=== PATIENT | female | born 1930 | race Caucasian/White ===

== ENCOUNTER 2016-09-28 11:51 | Emergency (ER) | payer OTHER, BC ==
--- NOTE | 2016-09-28 12:09 | DIAGNOSTIC IMAGING REPORT ---
PROCEDURE: CT HEAD WITHOUT CONTRAST INDICATION: STROKE TECHNIQUE: Noncontrast axial images with sagittal and coronal reformations. COMPARISON: None. FINDINGS: Moderate cortical atrophy and mild white matter chronic ischemic changes. Normal ventricular system. No acute CVA, hemorrhage, mass or midline shift. Calcific atherosclerosis of the vertebral and carotid arteries. Visualized mastoids and sinuses are clear. IMPRESSION: 1. No acute intracranial abnormality 2. Moderate atrophy and mild white matter chronic ischemic changes 3. Findings discussed with Dr. Dixon at 12:07 p.m.[facility] Time
--- NOTE | 2016-09-28 12:09 | DIAGNOSTIC IMAGING REPORT ---
PROCEDURE: CT HEAD WITHOUT CONTRAST INDICATION: STROKE TECHNIQUE: Noncontrast axial images with sagittal and coronal reformations. COMPARISON: None. FINDINGS: Moderate cortical atrophy and mild white matter chronic ischemic changes. Normal ventricular system. No acute CVA, hemorrhage, mass or midline shift. Calcific atherosclerosis of the vertebral and carotid arteries. Visualized mastoids and sinuses are clear. IMPRESSION: 1. No acute intracranial abnormality 2. Moderate atrophy and mild white matter chronic ischemic changes 3. Findings discussed with Dr. Dixon at 12:07 p.m.[facility] Time
--- NOTE | 2016-09-28 14:21 | DIAGNOSTIC IMAGING REPORT ---
PROCEDURE: US VENOUS - BILATERAL EXT INDICATION: SWELLING TECHNIQUE: Color Doppler duplex imaging of the deep and superficial venous system without and with compression. COMPARISON: None. FINDINGS: RIGHT LOWER EXTREMITY: Deep and superficial venous system of the right lower extremity is within normal limits. There is no evidence of deep vein thrombosis or superficial thrombophlebitis. LEFT LOWER EXTREMITY: Deep and superficial venous system of the left lower extremity is within normal limits. There is no evidence of deep vein thrombosis or superficial thrombophlebitis. There is left calf edema. IMPRESSION: 1. No evidence of a DVT in both lower extremities 2. Left calf edema.
--- NOTE | 2016-09-28 14:24 | ED NURSING NOTES ---
Clinical Report - Nurses [facility] [address] [place] [address] 09/28/2016 11:51 Patient: EVON MAJOR TRIAGE Triage time 1150. Acuity: LEVEL 2. Chief Complaint: FACIAL DROOP. 1150. ROXANNA COMA SCORE: [place] Coma Scale: 14- eyes open spontaneously (4); best verbal response- disoriented (4); best motor response- obeys commands (6). --12:08 Caitlin Mancilla R.N. 11:50 09/28/16. BP: 151/74. HR: 84. RR: 18. O2 saturation: 18%. Temp: 97.7 F. --12:08 Caitlin Mancilla R.N. Weight: 52 kg measured. Height/Length: 60 inches. BMI: 22.4. --11:57 Caitlin Mancilla R.N. Medications Acetaminophen Oral 500 mg, 3x a day as needed. Atorvastatin Calcium Oral 10 mg, daily. Cranberry Oral (Capsule 200 mg) 4 capsules daily. Ferrous Sulfate Oral (Tablet 325 (65 Fe) mg) 1 tablet, 3x a day. Levothyroxine Sodium Oral 50 mcg, daily. Mag64 Oral 1 tab daily. MetFORMIN HCl Oral (Tablet 1000 mg) 1 tablet, daily. Mirtazapine Oral 15 mg, at bedtime. Oyster Shell Calcium Oral (Tablet 500 mg) 1 tablet. Pantoprazole Sodium Oral 20 mg. Polyethylene Glycol 3350 Oral, daily. Prazosin HCl Oral 1 mg. Vitamin D Oral (Capsule 2000 unit) 1 capsule. --12:15 Caitlin Mancilla R.N. Allergies Penicillins. --12:11 Caitlin Mancilla R.N. History Arrived by EMS. Historian: patient. Unaccompanied. This started today pt in by EMS after [facility] staff noted that pt had slurred speech and left sided facial droop - but EMS that this has been resolving while they have had contact with her. No headache. SOCIAL HX: Never smoker. No alcohol use or drug use. --12:08 Caitlin Mancilla R.N. PROBLEMS: Prolapse of vaginal wall. Cervical disc degeneration. 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 Hemorrhoids. Hypercholesterolemia. Restless Legs Syndrome. Osteoporosis. Memory Loss. Degenerative Joint Disease. Diverticulosis. Anemia. Essential Hypertension. Anxiety Reaction. Insomnia. --12:01 Caitlin Mancilla R.N. Interventions ID band on patient. To treatment room. --12:08 Caitlin Mancilla R.N. PHYSICAL ASSESSMENT 1150. To room via stretcher. Patient gowned. GENERAL / NEURO / PSYCH: Awake. Alert. Appears in no acute distress. Speech normal. Mood/affect normal. Moves all extremities equally. RESPIRATORY: Respirations not labored. CVS: Capillary refill less than 2 seconds. SKIN: Skin is intact, warm and dry. --12:09 Caitlin Mancilla R.N. NURSING PROGRESS NOTES 11:50. Oxygen administered. Monitoring of patient in place. Patient gowned. Head of bed elevated. Reassurance given. Patient identifiers checked. Call light placed in reach. Side rails up. Bed placed in lowest position. Patient placed in chair. Patient ready for evaluation- chart flagged. --12:01 Caitlin Mancilla R.N. Patient transported to [place] by stretcher with tech. ([id number]). --12:02 Caitlin Mancilla R.N. 12:02. Patient returned from CT by stretcher with tech. --12:02 Caitlin Mancilla R.N. 12:04 09/28/2016 Site #1 started via IV in the left with an 18g angiocath, with aseptic technique and good blood return; one attempt. Blood drawn: rainbow set. Saline lock flushed with 10 mL saline. --12:04 Caitlin Mancilla R.N. 12:05 09/28/16. BP: 148/65. HR: 79. RR: 18. O2 saturation: 99%. Temp: deferred. Pain level now: 0/10. --12:11 Caitlin Mancilla R.N. 12:30 09/28/16. BP: 147/73. HR: 78. RR: 18. O2 saturation: 99%. Temp: deferred. Pain level now: 0/10. Additional comments: Pt resting quietly, states she wishes she could go home. denies c/o . --12:37 Caitlin Mancilla R.N. 12:45. ( Daughter at bedside talking with pt . Pt in no distress, recognizes daughter). --12:59 Caitlin Mancilla R.N. 13:00 09/28/16. BP: 145/78. HR: 76. RR: 18. O2 saturation: 99%. Temp: deferred. Pain level now: 0/10. --13:23 Caitlin Mancilla R.N. 13:07. ( Pt given lunch tray, daughter helping her with lunch (cutting up meat etc)). --13:23 Caitlin Mancilla R.N. 13:25 09/28/16. ( ERMD in to talk with pt and daughter, ordering a US due to leg swelling). --13:25 Caitlin Mancilla R.N. 13:35. ( Up to BSC with 1 staff assist. UA obtained and sent to lab). --14:01 Caitlin Mancilla R.N. 13:42. ( US in room to do exam). --14:01 Caitlin Mancilla R.N. 14:10 09/28/16. BP: 124/64. HR: 70. RR: 16. O2 saturation: 98%. Temp: deferred. Pain level now: 0/10. Additional comments: eatting ice cream, waiting for US results . --14:16 Caitlin Mancilla R.N. 14:35 09/28/2016 Site #1 removed upon discharge. Pressure dressing applied. --15:35 Caitlin Mancilla R.N. 14:30 pt assisted in getting dressed by staff and daughter. --15:35 Caitlin Mancilla R.N. DISPOSITION / DISCHARGE 14:45. Condition at departure: improved and stable. No learning barriers present. Discharge instructions provided and reviewed with the patient. Reviewed medication(s) (talk with your dr about med concerns discussed). Patient verbalized understanding. Written instructions provided in Iranian. The patient was discharged home and accompanied by family. She left the Emergency Department in a wheelchair and via private vehicle. Family member driving (daughter). ROXANNA COMA SCORE: [place] Coma Scale: 14- eyes open spontaneously (4); best verbal response- disoriented (4); best motor response- obeys commands (6). --15:34 Caitlin Mancilla R.N. 14:45 09/28/16. BP: 118/55. HR: 71. RR: 20. O2 saturation: 99%. Temp: deferred. Pain level now: 0/10. --15:34 Caitlin Mancilla R.N. Locked/Released at 09/28/2016 16:50 by Caitlin Mancilla R.N.
--- NOTE | 2016-09-28 14:24 | ED CLINICAL REPORT ---
Clinical Report - Physicians/Mid Levels [facility] [address] [place] [place] [address] 09/28/2016 11:51 Patient: EVON MAJOR Time Seen: 11:54; initial patient contact. Arrived- By ambulance. Historian- patient and EMS personnel. HISTORY OF PRESENT ILLNESS Chief Complaint: FACIAL DROOP. The patient has had new onset of weakness of the left face (mild). No numbness, tingling, visual disturbance, impaired swallowing or recent fall. She has had difficulty with speech. No difficulty walking. 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 At its maximum deficit described as mild. When seen in the E.D., it was gone. No dizziness, altered mental status, seizure or blackouts. Usually is alert and oriented X3 and has normal mobility. Similar symptoms previously: None. Recent medical care: Not recently seen/assessed. REVIEW OF SYSTEMS No headache, head injury, chest pain or difficulty breathing. She has had moderate pedal edema involving the right and left leg. All systems otherwise negative, except as recorded above. PAST HISTORY ( Prolapse of vaginal wall. Cervical disc degeneration. 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 Hemorrhoids. Hypercholesterolemia. Restless Legs Syndrome. Osteoporosis. Memory Loss. Degenerative Joint Disease. Diverticulosis. Anemia. Essential Hypertension. Anxiety Reaction. Insomnia.). Medications: Acetaminophen Oral 500 mg, 3x a day as needed. Atorvastatin Calcium Oral 10 mg, daily. Cranberry Oral (Capsule 200 mg) 4 capsules daily. Ferrous Sulfate Oral (Tablet 325 (65 Fe) mg) 1 tablet, 3x a day. Levothyroxine Sodium Oral 50 mcg, daily. Mag64 Oral 1 tab daily. MetFORMIN HCl Oral (Tablet 1000 mg) 1 tablet, daily. Mirtazapine Oral 15 mg, at bedtime. Oyster Shell Calcium Oral (Tablet 500 mg) 1 tablet. Pantoprazole Sodium Oral 20 mg. Polyethylene Glycol 3350 Oral, daily. Prazosin HCl Oral 1 mg. Vitamin D Oral (Capsule 2000 unit) 1 capsule. Allergies: Penicillins. SOCIAL HISTORY Never smoker. No alcohol use or drug use. ADDITIONAL NOTES The nursing notes have been reviewed. PHYSICAL EXAM Vital Signs: 09/28/2016 11:50 BP: 151/74. HR: 84. RR: 18. O2 saturation: 18%. Temp: 97.7 F. Have been reviewed and do not appear to be correct. Hypertensive. Heart rate normal. Respiratory rate normal. Oxygen saturation normal. Appearance: Alert. No acute distress. Head: Head atraumatic. Eyes: Pupils equal, round and reactive to light. ENT: Normal ENT inspection. Airway intact. Pharynx normal. Neck: Normal inspection. Neck supple. No carotid bruit. CVS: Normal heart rate and rhythm. Heart sounds normal. Respiratory: No respiratory distress. Breath sounds normal. Skin: Skin warm and dry. Normal skin color. No rash. Neuro: Alert. Oriented X 3. Mood/affect normal. Speech normal. Cranial nerves normal (as tested). No cerebellar findings. No abnormal finger-nose test. No motor deficit. No sensory deficit. Reflexes normal. LABS, X-RAYS, AND EKG CT Head: (1. No acute intracranial abnormality 2. Moderate atrophy and mild white matter chronic ischemic changes). Head CT performed without contrast. The study was independently viewed by me, interpreted by the radiologist and discussed with the radiologist. Prior studies were not available for comparison. Lower Extremity Sonography: Negative exam. No compression abnormality noted. The exam was performed by a geologic technician. The study was interpreted by the radiologist and discussed with the radiologist. Laboratory Tests: CBC w Diff: (JOYCE: 09/28/2016 12:05) ( MsgRcvd 09/28/2016 12:17) Final results Test Result Flag Units (Reference) WHITE BLOOD COUNT 7.4 K/uL (4.5-11.5) RED BLOOD COUNT 3.22 L M/uL (4.00-5.20) HEMOGLOBIN 9.3 L gm/dL (12.0-16.0) HEMATOCRIT 28.4 L % (36.0-46.0) MEAN CELL VOLUME 88 fL (80-100) MEAN CORPUSCULAR HGB 29 pg (26-34) MEAN CORPUSCULAR HGB CONC 33 g/dL (31-37) RED CELL DISTRIBUTION WIDTH 15.3 H % (11.6-14.8) PLATELET COUNT 277 K/uL (150-400) NEUTROPHIL % 68.0 % (50-75) LYMPH % 22.8 L % (25-40) MONO % 8.0 % (3-14) EOSINOPHIL % 0.8 % (0-4) BASOPHIL % 0.4 % (0-2) PT with INR: (JOYCE: 09/28/2016 12:05) ( [facility] [place] 12:24) Final results Test Result Flag Units (Reference) INR 1.0 (0.8-1.2) Low Intensity Therapy: INR 1.5-2.0 PT range 18.5-23.1Mod.Intensity Therapy: INR 2.0-3.0 PT range 23.1-31.5High Intensity Therapy: INR 2.5-3.5 PT range 27.4-35.5High Intensity Therapy 2: INR 3.0-4.0 PT range 31.5-39.3 APTT 32 SECONDS (24-34) FIBRINOGEN 266 mg/dL (193-455) D-DIMER QUANTITATIVE 0.97 H ug/mLFEU (0.27-0.52) The primary value of this quantitative assay relates toits negative predictive value (i.e. exclusion) of pulmonaryembolism/deep vein thrombosis/DIC.Elevated levels of d-dimer may also occur with:, age, cancer, inflammation, liver disease,post-op, infection, hematoma, coronary disease, peripheralarteriopathy, bleeding disorders and thrombolytic treatment.Results should be correlated with other clinical andradiological data.Testing Methodology: Latex Immunoassay CMP: (JOYCE: 09/28/2016 12:05) ( [facility] [place] 09/28/2016 12:29) Final results Test Result Flag Units (Reference) GLUCOSE 128 H mg/dL (70-110) BUN 21 H mg/dL (7-18) CREATININE 0.9 mg/dL (0.6-1.3) Estimated GFR >60 mL/min Estimated GFR- >60 mL/min Note: Persistent reduction over 3 months in eGFR<60 mL/min/1.73 m2 defines CKD. Patients with eGFR values>=60 mL/min/1.73 m2 may also have CKD if evidence ofpersistent proteinuria. Additional information may be foundat www.kidney.org. SODIUM 134 L mmol/L (136-145) POTASSIUM 3.9 mmol/L (3.5-5.1) CHLORIDE 98 mmol/L (98-107) CARBON DIOXIDE 28 mmol/L (21-32) CALCIUM 8.8 mg/dL (8.5-10.1) TOTAL PROTEIN 6.8 g/dL (6.4-8.2) ALBUMIN 3.4 g/dL (3.3-5.0) BILIRUBIN, TOTAL 0.2 mg/dL (0.0-1.0) ALKALINE PHOSPHATASE 67 U/L (46-116) AST (SGOT) 16 U/L (15-37) ALT (SGPT) 17 U/L (12-78) . PROGRESS AND PROCEDURES Course of Care: 13:35 09/28/16. Pos D dimer w/ LE edema, will US to ensure no DVT. Anemia is Cx per her daughter. Disposition: Discharged to [facility]pc in good and improved condition. Condition: good. CLINICAL IMPRESSION Acute weakness of the left face. 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 Bilateral pedal edema secondary to unknown cause (Possibly medication). INSTRUCTIONS (The Prazosin may be the cause of your leg swelling, speak to your doctor about this. Also, your Atorvastatin should be discussed as the potential benefits at your ago are likely outweighed by potential side effects.). Your Current Medications: STOP TAKING THE FOLLOWING MEDICATIONS: Atorvastatin Calcium Oral : 10 mg daily. CONTINUE TAKING THE FOLLOWING MEDICATIONS: Acetaminophen Oral : 500 mg 3x a day, prn. Cranberry Oral : Capsule 200 mg, 4 capsules daily. Ferrous Sulfate Oral : Tablet 325 (65 Fe) mg, 1 tablet 3x a day. Levothyroxine Sodium Oral : 50 mcg daily. Mag64 Oral : 1 tab daily. MetFORMIN HCl Oral : Tablet 1000 mg, 1 tablet daily. Mirtazapine Oral : 15 mg at bedtime. Oyster Shell Calcium Oral : Tablet 500 mg, 1 tablet. Pantoprazole Sodium Oral : 20 mg. Polyethylene Glycol 3350 Oral : daily. Vitamin D Oral : Capsule 2000 unit, 1 capsule. CONTINUE TAKING THE FOLLOWING MEDICATIONS UNTIL YOU CHECK WITH YOUR PHYSICIAN: Prazosin HCl Oral : 1 mg. Follow-up: Follow up with your doctor in about three days. Call for an appointment. Screening today revealed the patient's blood pressure to be in the pre-hypertensive range. The patient should follow up with a primary care provider for blood pressure management. (Electronically signed by Vazquez Dixon Dr. 09/28/2016 14:32)
--- NOTE | 2016-09-28 14:24 | ED CLINICAL REPORT ---
Clinical Report - Physicians/Mid Levels [facility] [address] [place] [address] 09/28/2016 11:51 Patient: EVON MAJOR Time Seen: 11:54; initial patient contact. Arrived- By ambulance. Historian- patient and EMS personnel. HISTORY OF PRESENT ILLNESS Chief Complaint: FACIAL DROOP. The patient has had new onset of weakness of the left face (mild). No numbness, tingling, visual disturbance, impaired swallowing or recent fall. She has had difficulty with speech. No difficulty walking. This started about 15 minutes APPLICATIONS INTERN, patient was last known well (this AM) and is now gone (Resolved when EMS arrived). At its maximum deficit described as mild. When seen in the E.D., it was gone. No dizziness, altered mental status, seizure or blackouts. Usually is alert and oriented X3 and has normal mobility. Similar symptoms previously: None. Recent medical care: Not recently seen/assessed. REVIEW OF SYSTEMS No headache, head injury, chest pain or difficulty breathing. She has had moderate pedal edema involving the right and left leg. All systems otherwise negative, except as recorded above. PAST HISTORY ( Prolapse of vaginal wall. Cervical disc degeneration. 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 Hemorrhoids. Hypercholesterolemia. Restless Legs Syndrome. Osteoporosis. Memory Loss. Degenerative Joint Disease. Diverticulosis. Anemia. Essential Hypertension. Anxiety Reaction. Insomnia.). Medications: Acetaminophen Oral 500 mg, 3x a day as needed. Atorvastatin Calcium Oral 10 mg, daily. Cranberry Oral (Capsule 200 mg) 4 capsules daily. Ferrous Sulfate Oral (Tablet 325 (65 Fe) mg) 1 tablet, 3x a day. Levothyroxine Sodium Oral 50 mcg, daily. Mag64 Oral 1 tab daily. MetFORMIN HCl Oral (Tablet 1000 mg) 1 tablet, daily. Mirtazapine Oral 15 mg, at bedtime. Oyster Shell Calcium Oral (Tablet 500 mg) 1 tablet. Pantoprazole Sodium Oral 20 mg. Polyethylene Glycol 3350 Oral, daily. Prazosin HCl Oral 1 mg. Vitamin D Oral (Capsule 2000 unit) 1 capsule. Allergies: Penicillins. SOCIAL HISTORY Never smoker. No alcohol use or drug use. ADDITIONAL NOTES The nursing notes have been reviewed. PHYSICAL EXAM Vital Signs: 09/28/2016 11:50 BP: 151/74. HR: 84. RR: 18. O2 saturation: 18%. Temp: 97.7 F. Have been reviewed and do not appear to be correct. Hypertensive. Heart rate normal. Respiratory rate normal. Oxygen saturation normal. Appearance: Alert. No acute distress. Head: Head atraumatic. Eyes: Pupils equal, round and reactive to light. ENT: Normal ENT inspection. Airway intact. Pharynx normal. Neck: Normal inspection. Neck supple. No carotid bruit. CVS: Normal heart rate and rhythm. Heart sounds normal. Respiratory: No respiratory distress. Breath sounds normal. Skin: Skin warm and dry. Normal skin color. No rash. Neuro: Alert. Oriented X 3. Mood/affect normal. Speech normal. Cranial nerves normal (as tested). No cerebellar findings. No abnormal finger-nose test. No motor deficit. No sensory deficit. Reflexes normal. LABS, X-RAYS, AND EKG CT Head: (1. No acute intracranial abnormality 2. Moderate atrophy and mild white matter chronic ischemic changes). Head CT performed without contrast. The study was independently viewed by me, interpreted by the radiologist and discussed with the radiologist. Prior studies were not available for comparison. Lower Extremity Sonography: Negative exam. No compression abnormality noted. The exam was performed by a vending machine technician. The study was interpreted by the radiologist and discussed with the radiologist. Laboratory Tests: CBC w Diff: (JOYCE: 09/28/2016 12:05) ( MsgRcvd 09/28/2016 12:17) Final results Test Result Flag Units (Reference) WHITE BLOOD COUNT 7.4 K/uL (4.5-11.5) RED BLOOD COUNT 3.22 L M/uL (4.00-5.20) HEMOGLOBIN 9.3 L gm/dL (12.0-16.0) HEMATOCRIT 28.4 L % (36.0-46.0) MEAN CELL VOLUME 88 fL (80-100) MEAN CORPUSCULAR HGB 29 pg (26-34) MEAN CORPUSCULAR HGB CONC 33 g/dL (31-37) RED CELL DISTRIBUTION WIDTH 15.3 H % (11.6-14.8) PLATELET COUNT 277 K/uL (150-400) NEUTROPHIL % 68.0 % (50-75) LYMPH % 22.8 L % (25-40) MONO % 8.0 % (3-14) EOSINOPHIL % 0.8 % (0-4) BASOPHIL % 0.4 % (0-2) PT with INR: (JOYCE: 09/28/2016 12:05) ( [facility] [place] 09/28/[place] 12:24) Final results Test Result Flag Units (Reference) INR 1.0 (0.8-1.2) Low Intensity Therapy: INR 1.5-2.0 PT range 18.5-23.1Mod.Intensity Therapy: INR 2.0-3.0 PT range 23.1-31.5High Intensity Therapy: INR 2.5-3.5 PT range 27.4-35.5High Intensity Therapy 2: INR 3.0-4.0 PT range 31.5-39.3 APTT 32 SECONDS (24-34) FIBRINOGEN 266 mg/dL (193-455) D-DIMER QUANTITATIVE 0.97 H ug/mLFEU (0.27-0.52) The primary value of this quantitative assay relates toits negative predictive value (i.e. exclusion) of pulmonaryembolism/deep vein thrombosis/DIC.Elevated levels of d-dimer may also occur with:, age, cancer, inflammation, liver disease,post-op, infection, hematoma, coronary disease, peripheralarteriopathy, bleeding disorders and thrombolytic treatment.Results should be correlated with other clinical andradiological data.Testing Methodology: Latex Immunoassay CMP: (JOYCE: 09/28/2016 12:05) ( [facility] [place] 09/28/2016 12:29) Final results Test Result Flag Units (Reference) GLUCOSE 128 H mg/dL (70-110) BUN 21 H mg/dL (7-18) CREATININE 0.9 mg/dL (0.6-1.3) Estimated GFR >60 mL/min Estimated GFR- >60 mL/min Note: Persistent reduction over 3 months in eGFR<60 mL/min/1.73 m2 defines CKD. Patients with eGFR values>=60 mL/min/1.73 m2 may also have CKD if evidence ofpersistent proteinuria. Additional information may be foundat www.kidney.org. SODIUM 134 L mmol/L (136-145) POTASSIUM 3.9 mmol/L (3.5-5.1) CHLORIDE 98 mmol/L (98-107) CARBON DIOXIDE 28 mmol/L (21-32) CALCIUM 8.8 mg/dL (8.5-10.1) TOTAL PROTEIN 6.8 g/dL (6.4-8.2) ALBUMIN 3.4 g/dL (3.3-5.0) BILIRUBIN, TOTAL 0.2 mg/dL (0.0-1.0) ALKALINE PHOSPHATASE 67 U/L (46-116) AST (SGOT) 16 U/L (15-37) ALT (SGPT) 17 U/L (12-78) . PROGRESS AND PROCEDURES Course of Care: 13:35 09/28/16. Pos D dimer w/ LE edema, will US to ensure no DVT. Anemia is Cx per her daughter. Disposition: Discharged to snf in good and improved condition. Condition: good. CLINICAL IMPRESSION Acute weakness of the left face. (resolved APPLICATIONS INTERN). Bilateral pedal edema secondary to unknown cause (Possibly medication). INSTRUCTIONS (The Prazosin may be the cause of your leg swelling, speak to your doctor about this. Also, your Atorvastatin should be discussed as the potential benefits at your ago are likely outweighed by potential side effects.). Your Current Medications: STOP TAKING THE FOLLOWING MEDICATIONS: Atorvastatin Calcium Oral : 10 mg daily. CONTINUE TAKING THE FOLLOWING MEDICATIONS: Acetaminophen Oral : 500 mg 3x a day, prn. Cranberry Oral : Capsule 200 mg, 4 capsules daily. Ferrous Sulfate Oral : Tablet 325 (65 Fe) mg, 1 tablet 3x a day. Levothyroxine Sodium Oral : 50 mcg daily. Mag64 Oral : 1 tab daily. MetFORMIN HCl Oral : Tablet 1000 mg, 1 tablet daily. Mirtazapine Oral : 15 mg at bedtime. Oyster Shell Calcium Oral : Tablet 500 mg, 1 tablet. Pantoprazole Sodium Oral : 20 mg. Polyethylene Glycol 3350 Oral : daily. Vitamin D Oral : Capsule 2000 unit, 1 capsule. CONTINUE TAKING THE FOLLOWING MEDICATIONS UNTIL YOU CHECK WITH YOUR PHYSICIAN: Prazosin HCl Oral : 1 mg. Follow-up: Follow up with your doctor in about three days. Call for an appointment. Screening today revealed the patient's blood pressure to be in the pre-hypertensive range. The patient should follow up with a primary care provider for blood pressure management. (Electronically signed by Vazquez Dixon Dr. 09/28/2016 14:32)
--- NOTE | 2016-09-28 14:25 | ED ORDER SUMMARY ---
..... Patient: EVON MAJOR OrderSheet [facility]ly [facility] VisitID: [id number] [place] [address] 86y, F Registration Date/Time: 09/28/2016 ORDER SHEET Weight: 52 kg (measured) Allergies: Penicillins GENERAL ORDERS: CT Head wo Cont Urgent (11:55 09/28/2016 Amber Joy) (Ack 11:56 KHoerner) (12:12 KHoerner) Stroke Panel Stat (11:55 09/28/2016 Amber Joy) (Ack 11:56 Ben) (12:20 DDean R.N.) US Venous Bilat (Pos D dimer) Urgent (13:25 09/28/2016 Amber Joy) (Ack 13:27 KHoerner) UA-Culture if indicated Urgent (13:34 09/28/2016 Amber Joy) (Ack 13:34 RENOoerner) (13:46 KHoerner) MEDICATION ORDERS: IV FLUIDS: IV Saline Lock (11:55 09/28/2016 Amber Joy) (12:20 DDean R.N.) ORDER SHEET NOTES: [Electronically signed by Vazquez Dixon Dr. (14:32 09/28/2016)] [Electronically signed by Caitlin Mancilla R.N. (16:50 09/28/2016)] [Electronically locked/signed by Caitlin Mancilla R.N. (16:50 09/28/2016)]
--- NOTE | 2016-09-28 14:25 | ED ORDER SUMMARY ---
..... Patient: EVON MAJOR OrderSheet [facility] VisitID: [id number] [place] [address] 86y, F Registration Date/Time: 09/28/2016 ORDER SHEET Weight: 52 kg (measured) Allergies: Penicillins GENERAL ORDERS: CT Head wo Cont Urgent (11:55 09/28/2016 Amber Joy) (Ack 11:56 KHoerner) (12:12 KHoerner) Stroke Panel Stat (11:55 09/28/2016 Amber Joy) (Ack 11:56 Ben) (12:20 DDean R.N.) US Venous Bilat (Pos D dimer) Urgent (13:25 09/28/2016 Amber Joy) (Ack 13:27 KHoerner) UA-Culture if indicated Urgent (13:34 09/28/2016 Amber Joy) (Ack 13:34 RENOoerner) (13:46 KHoerner) MEDICATION ORDERS: IV FLUIDS: IV Saline Lock (11:55 09/28/2016 Amber Joy) (12:20 DDean R.N.) ORDER SHEET NOTES: [Electronically signed by Vazquez Dixon Dr. (14:32 09/28/2016)] [Electronically signed by Caitlin Mancilla R.N. (16:50 09/28/2016)] [Electronically locked/signed by Caitlin Mancilla R.N. (16:50 09/28/2016)]
--- NOTE | 2016-09-28 16:50 | ED MAR SUMMARY ---
..... Medication Administration Record [facility] [address] [place], [place] [id number] Patient: EVON MAJOR Visit ID: [id number] 86y, F Weight: 52.0 kg Height/Length: 60 in BMI: 22.4 ALLERGIES: Penicillins
--- NOTE | 2016-09-28 16:50 | ED DISCHARGE INSTRUCTIONS ---
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 Bilateral pedal edema secondary to unknown cause (Possibly medication). INSTRUCTIONS (The Prazosin may be the cause of your leg swelling, speak to your doctor about this. Also, your Atorvastatin should be discussed as the potential benefits at your ago are likely outweighed by potential side effects.). Your Current Medications: STOP TAKING THE FOLLOWING MEDICATIONS: Atorvastatin Calcium Oral : 10 mg daily. CONTINUE TAKING THE FOLLOWING MEDICATIONS: Acetaminophen Oral : 500 mg 3x a day, prn. Cranberry Oral : Capsule 200 mg, 4 capsules daily. Ferrous Sulfate Oral : Tablet 325 (65 Fe) mg, 1 tablet 3x a day. Levothyroxine Sodium Oral : 50 mcg daily. Mag64 Oral : 1 tab daily. MetFORMIN HCl Oral : Tablet 1000 mg, 1 tablet daily. Mirtazapine Oral : 15 mg at bedtime. Oyster Shell Calcium Oral : Tablet 500 mg, 1 tablet. Pantoprazole Sodium Oral : 20 mg. Polyethylene Glycol 3350 Oral : daily. Vitamin D Oral : Capsule 2000 unit, 1 capsule. CONTINUE TAKING THE FOLLOWING MEDICATIONS UNTIL YOU CHECK WITH YOUR PHYSICIAN: Prazosin HCl Oral : 1 mg. Follow-up: Follow up with your doctor in about three days. Call for an appointment. Screening today revealed the patient's blood pressure to be in the pre-hypertensive range. The patient should follow up with a primary care provider for blood pressure management. ADDITIONAL INFORMATION Leg Swelling [Bilateral] Swelling of the feet, ankles and legs is called "Edema." It is due to excess fluid collecting in the tissues. Because of gravity, excess fluid in the body settles in the lowest part. This is why the legs and feet are most affected. Some of the causes for edema include: Disease of the heart (congestive heart failure or "CHF") Prolonged standing or sitting (with the legs in the down position) Infection of the feet or legs Venous Insufficiency (congestion of blood in the veins of the legs) Varicose veins (dilated veins of the lower leg) Garters, or clothing that constricts your legs. (These will cause venous congestion by restricting blood flow.) Some medicines (hormones such as control pills; some blood pressure medicines, such as calcium channel blockers; steroids; some antidepressants such as MAO inhibitors and tricyclics.) Menstrual periods with fluid retention Renal insufficiency (a form of kidney disease) Liver failure (Some swelling is normal, but a sudden increase in leg swelling or weight gain can be a sign of a dangerous complication of ). Medical treatment will depend on the cause of your swelling. Diuretics (water pills) may be prescribed to remove excess fluid. Home Care: Do not wear garments that constrict your legs (such as garters). Elevate your legs while lying or sitting. If infection, injury or recent surgery is the cause for your swelling, stay off your legs as much as possible until symptoms improve. If your doctor says that your leg swelling is caused by venous insufficiency or varicose veins, do not sit or wet machine operator one place for long periods of time. Take breaks and walk about every few hours. Brisk walking is a good exercise and helps circulate the congested blood from your leg. Talk to your doctor about the use of support stockings to prevent daytime leg swelling. If your doctor says that heart disease is the cause of your leg swelling, follow a low-salt diet to prevent excess fluid retention. Follow Up with your doctor or as advised by our staff. Get Prompt Medical Attention if any of the following occur: New or worsening shortness of breath or chest pain Increasing swelling in both legs or ankles Swelling of the abdomen Redness, warmth or swelling in one leg Fever of 100.4F (38C) or higher, or as directed by your healthcare provider Yellow color to the skin or eyes Rapid, unexplained weight gain Weakness [Uncertain Cause] Based on your exam today, the exact cause of your weakness is not certain. However, your weakness does not seem to be a sign of a serious illness at this time. Sometimes the signs of a serious illness take more time to appear. Therefore, please watch for the warning signs listed below. Home Care: 1) Rest at home today. Do not over-exert yourself. 2) Take your medicine as prescribed. 3) For the next few days, drink extra fluids (unless your doctor wants you to restrict fluids for other reasons). Do not skip meals. Follow Up with your doctor or as advised if you are not starting to feel better within TWO days. Get Prompt Medical Attention if any of the following occur: Worsening of your symptoms Chest, arm, neck, jaw or upper back pain Dizziness or fainting Trouble breathing Unable to eat or drink normal amounts Nausea, frequent vomiting, frequent diarrhea Abdominal pain Numbness or weakness of the face, one arm or one leg Slurred speech, confusion, trouble speaking, walking or seeing Blood in vomit or stool (black or red color) Fever of 100.4 F (38 C) or higher, or as directed by your healthcare provider You have been given the following additional information: Peripheral Edema, Bilateral Weakness, Unk Cause (Electronically signed by Vazquez Dixon Dr. 09/28/2016 14:32)
--- NOTE | 2016-09-28 16:50 | ED MAR SUMMARY ---
..... Medication Administration Record [facility] [address] [place], [place] [id number] Patient: EVON MAJOR Visit ID: [id number] 86y, F Weight: 52.0 kg Height/Length: 60 in BMI: 22.4 ALLERGIES: Penicillins
--- NOTE | 2016-09-28 16:51 | ED MED RECONCILIATION SUMMARY ---
Patient: EVON MAJOR Medication Reconciliation Report [facility] VisitID: [id number] [place] [address] 86y, F Registration Date/Time: 09/28/2016 Weight: 52 kg Height/Length: 60 in. BMI: 22.4 ALLERGIES: Penicillins The patient's Home Medications are listed below: STOP TAKING THE FOLLOWING MEDICATIONS: Atorvastatin Calcium Oral 10 mg, daily CONTINUE TAKING THE FOLLOWING MEDICATIONS: Acetaminophen Oral 500 mg, 3x a day Cranberry Oral (200 mg) 4 capsules daily Ferrous Sulfate Oral (325 (65 Fe) mg) 1 tablet, 3x a day Levothyroxine Sodium Oral 50 mcg, daily Mag64 Oral 1 tab daily MetFORMIN HCl Oral (1000 mg) 1 tablet, daily Mirtazapine Oral 15 mg, at bedtime Oyster Shell Calcium Oral (500 mg) 1 tablet Pantoprazole Sodium Oral 20 mg Polyethylene Glycol 3350 Oral, daily Vitamin D Oral (2000 unit) 1 capsule CONTINUE TAKING THE FOLLOWING MEDICATIONS UNTIL YOU CHECK WITH YOUR PHYSICIAN: Prazosin HCl Oral 1 mg The source(s) of the original Home Medication information: Not obtained. The following Medications were given to the patient in the Emergency Department: None. The following Medications were prescribed to the patient: None.
--- NOTE | 2016-09-28 16:51 | ED MED RECONCILIATION SUMMARY ---
Patient: EVON MAJOR Medication Reconciliation Report [facility] VisitID: [id number] [place] [address] 86y, F Registration Date/Time: 09/28/2016 Weight: 52 kg Height/Length: 60 in. BMI: 22.4 ALLERGIES: Penicillins The patient's Home Medications are listed below: STOP TAKING THE FOLLOWING MEDICATIONS: Atorvastatin Calcium Oral 10 mg, daily CONTINUE TAKING THE FOLLOWING MEDICATIONS: Acetaminophen Oral 500 mg, 3x a day Cranberry Oral (200 mg) 4 capsules daily Ferrous Sulfate Oral (325 (65 Fe) mg) 1 tablet, 3x a day Levothyroxine Sodium Oral 50 mcg, daily Mag64 Oral 1 tab daily MetFORMIN HCl Oral (1000 mg) 1 tablet, daily Mirtazapine Oral 15 mg, at bedtime Oyster Shell Calcium Oral (500 mg) 1 tablet Pantoprazole Sodium Oral 20 mg Polyethylene Glycol 3350 Oral, daily Vitamin D Oral (2000 unit) 1 capsule CONTINUE TAKING THE FOLLOWING MEDICATIONS UNTIL YOU CHECK WITH YOUR PHYSICIAN: Prazosin HCl Oral 1 mg The source(s) of the original Home Medication information: Not obtained. The following Medications were given to the patient in the Emergency Department: None. The following Medications were prescribed to the patient: None.
== END 2016-09-28 14:48 | disposition home or self-care (01) ==
LOC: ED SRH 11:51
DX: R29.810 Facial weakness (principal); R60.0 Localized edema; N39.0 Urinary tract infection, site not specified; E78.00 Pure hypercholesterolemia, unspecified; I10 Essential (primary) hypertension; Z79.84 Long term (current) use of oral hypoglycemic drugs; Z79.899 Other long term (current) drug therapy; Z88.0 Allergy status to penicillin
CPT/HCPCS: 90004; 90100; 90148; 90469; 91556; 94001; 94050; 94060; 95059

== ENCOUNTER 2016-10-02 11:30 | Emergency (ER) | payer OTHER, BC ==
--- NOTE | 2016-10-02 11:50 | DIAGNOSTIC IMAGING REPORT ---
PROCEDURE: CT HEAD WITHOUT CONTRAST INDICATION: STROKE TECHNIQUE: Noncontrast axial images with sagittal and coronal reformations. COMPARISON: None. FINDINGS: Moderate cortical atrophy and mild white matter chronic ischemic changes. Normal ventricular size. No evidence of an acute CVA, hemorrhage, mass or midline shift. Extensive atherosclerosis of the vertebral and carotid arteries. Visualized mastoids and sinuses are clear. IMPRESSION: 1. No acute intracranial abnormality 2. Moderate atrophy and mild white matter chronic ischemic changes 3. Findings discussed with Dr. Hagan at 11:47 a.m.[facility] Time
--- NOTE | 2016-10-02 11:50 | DIAGNOSTIC IMAGING REPORT ---
PROCEDURE: CT HEAD WITHOUT CONTRAST INDICATION: STROKE TECHNIQUE: Noncontrast axial images with sagittal and coronal reformations. COMPARISON: None. FINDINGS: Moderate cortical atrophy and mild white matter chronic ischemic changes. Normal ventricular size. No evidence of an acute CVA, hemorrhage, mass or midline shift. Extensive atherosclerosis of the vertebral and carotid arteries. Visualized mastoids and sinuses are clear. IMPRESSION: 1. No acute intracranial abnormality 2. Moderate atrophy and mild white matter chronic ischemic changes 3. Findings discussed with Dr. Hagan at 11:47 a.m.[facility] Time
--- NOTE | 2016-10-02 12:22 | DIAGNOSTIC IMAGING REPORT ---
PROCEDURE: XR CHEST 1 VIEW INDICATION: CVA TECHNIQUE: Portable AP view 12:09 p.m. COMPARISON: None. FINDINGS: Skin fold projects over the right hemithorax. Lungs are clear. No evidence of aspiration. Mild cardiomegaly. Mediastinum and pulmonary vessels are normal. Thorax is normal. IMPRESSION: 1. No acute changes 2. Mild cardiomegaly.
--- NOTE | 2016-10-02 14:21 | ED ORDER SUMMARY ---
..... Patient: EVON MAJOR OrderSheet [facility] VisitID: [id number] [place], [place] [id number] 86y, F Registration Date/Time: 10/02/2016 ORDER SHEET Weight: 51 kg (measured) Allergies: Penicillins GENERAL ORDERS: CT Head wo Cont Urgent (11:34 10/02/2016 Jayy GODFREY) (Ack 11:51 Panfilo) (14:26 Rick R.N.) EKG - ER Stat (11:50 10/02/2016 PWeiler ER Tech1 per protocol) (11:50 PWeiler ER Tech1) Chest 1V Urgent (11:59 10/02/2016 Jayy GODFREY) (Ack 12:02 Panfilo) (14:10 LNations ER Tech1) Apprentice Stylist (Continuous) (12:00 10/02/2016 Jayy GODFREY) (Ack 12:02 Panfilo) (12:04 KPajosie-Lopez R.N.) CBC w Diff Urgent (12:00 10/02/2016 Jayy GODFREY) (Ack 12:02 Panfilo) (12:05 KPajosie-Lopez R.N.) CMP Urgent (12:00 10/02/2016 Jayy GODFREY) (Ack 12:02 Panfilo) (12:05 Mono R.N.) UA-Culture if indicated Urgent (12:00 10/02/2016 Jayy GODFREY) (Ack 12:02 Panfilo) (14:21 Rick R.N.) PT with INR Urgent (12:00 10/02/2016 Jayy GODFREY) (Ack 12:02 Panfilo) (12:05 KPaLolly R.N.) PTT Urgent (12:00 10/02/2016 Jayy GODFREY) (Ack 12:02 Panfilo) (12:05 KPaLolly R.N.) Amylase Urgent (12:00 10/02/2016 Jayy GODFREY) (Ack 12:02 Panfilo) (12:05 KPaLolly R.N.) Lipase Urgent (12:00 10/02/2016 Jayy GODFREY) (Ack 12:02 Panfilo) (12:05 KPage-Kuchan R.N.) CPK Urgent (12:00 10/02/2016 Jayy GODFREY) (Ack 12:02 Panflio) (12:05 KPage-Kuchan R.N.) Troponin-I Urgent (12:00 10/02/2016 Jayy GODFREY) (Ack 12:02 Panfilo) (12:05 KPage-Kuchan R.N.) Oxygen (2 L/min) (NC) (12:00 10/02/2016 Jayy GODFREY) (Ack 12:02 Panfilo) (12:04 KPage-Kuchan R.N.) Pulse oximeter (12:10/02/2016 Jayy GODFREY) (Ack 12:02 Panfilo) (12:04 KPage-Kuchan R.N.) EKG - ER Stat (12:10/02/2016 Jayy GODFREY) (Ack 12:02 Panfilo) (12:04 KPage-Kuchan R.N.) MEDICATION ORDERS: Aspirin PO 325 mg (Do not crush or chew, NOW) (14:16 10/02/2016 Jayy GODFREY) (Ack 14:21 Rick R.N.) (14:26 Rick R.N.) IV FLUIDS: IV Saline Lock (12:10/02/2016 Jayy GODFREY) (12:04 KPajosie-Eyadn R.N.) ORDER SHEET NOTES: [Electronically signed by Kerrie Harley R.N. (15:49 10/02/2016)] [Electronically signed by Wilmar Hagan MD (19:30 10/02/2016)] [Electronically locked/signed by Kerrie Harley R.N. (15:49 10/02/2016)]
--- NOTE | 2016-10-02 14:21 | ED ORDER SUMMARY ---
..... Patient: EVON MAJOR OrderSheet [facility] VisitID: [id number] [place], [place] [id number] 86y, F Registration Date/Time: 10/02/2016 ORDER SHEET Weight: 51 kg (measured) Allergies: Penicillins GENERAL ORDERS: CT Head wo Cont Urgent (11:34 10/02/2016 Jayy GODFREY) (Ack 11:51 Panfilo) (14:26 Rick R.N.) EKG - ER Stat (11:50 10/02/2016 PWeiler ER Tech1 per protocol) (11:50 PWeiler ER Tech1) Chest 1V Urgent (11:59 10/02/2016 Jayy GODFREY) (Ack 12:02 Panfilo) (14:10 LNations ER Tech1) Certified Retinal Angiographer (Continuous) (12:00 10/02/2016 Jayy GODFREY) (Ack 12:02 Panfilo) (12:04 KPajosie-Lopez R.N.) CBC w Diff Urgent (12:00 10/02/2016 Jayy GODFREY) (Ack 12:02 Panfilo) (12:05 KPajosie-Lopez R.N.) CMP Urgent (12:00 10/02/2016 Jayy GODFREY) (Ack 12:02 Panfilo) (12:05 Mono R.N.) UA-Culture if indicated Urgent (12:00 10/02/2016 Jayy GODFREY) (Ack 12:02 Panfilo) (14:21 Rick R.N.) PT with INR Urgent (12:00 10/02/2016 Jayy GODFREY) (Ack 12:02 Panfilo) (12:05 KPaLolly R.N.) PTT Urgent (12:00 10/02/2016 Jayy GODFREY) (Ack 12:02 Panfilo) (12:05 KPaLolly R.N.) Amylase Urgent (12:00 10/02/2016 Jayy GODFREY) (Ack 12:02 Panfilo) (12:05 KPaLolly R.N.) Lipase Urgent (12:00 10/02/2016 Jayy GODFREY) (Ack 12:02 Panfilo) (12:05 KPage-Kuchan R.N.) CPK Urgent (12:00 10/02/2016 Jayy GODFREY) (Ack 12:02 Panfilo) (12:05 KPage-Kuchan R.N.) Troponin-I Urgent (12:00 10/02/2016 Jayy GODFREY) (Ack 12:02 Panfilo) (12:05 KPage-Kuchan R.N.) Oxygen (2 L/min) (NC) (12:00 10/02/2016 Jayy GODFREY) (Ack 12:02 Panfilo) (12:04 KPage-Kuchan R.N.) Pulse oximeter (12:10/02/2016 Jayy GODFREY) (Ack 12:02 Panfilo) (12:04 KPage-Kuchan R.N.) EKG - ER Stat (12:10/02/2016 Jayy GODFREY) (Ack 12:02 Panfilo) (12:04 KPage-Kuchan R.N.) MEDICATION ORDERS: Aspirin PO 325 mg (Do not crush or chew, NOW) (14:16 10/02/2016 Jayy GODFREY) (Ack 14:21 Rick R.N.) (14:26 Rick R.N.) IV FLUIDS: IV Saline Lock (12:10/02/2016 Jayy GODFREY) (12:04 KPajosie-Eyadn R.N.) ORDER SHEET NOTES: [Electronically signed by Kerrie Harley R.N. (15:49 10/02/2016)] [Electronically signed by Wilmar Hagan MD (19:30 10/02/2016)] [Electronically locked/signed by Kerrie Harley R.N. (15:49 10/02/2016)]
--- NOTE | 2016-10-02 14:21 | ED NURSING NOTES ---
Clinical Report - Nurses [facility] [address] [place] [address] 10/02/2016 11:30 Patient: EVON MAJOR TRIAGE Triage time 1131. Acuity: LEVEL 2. Chief Complaint: (pt from dementia unit,staff reported "change in pt" left sided weakness, pt arrives a/o to self only, pt straight to CT with RN). Alert. No acute distress. SEPSIS SCREEN: Sepsis Screen. Negative (no infection suspected/documented). ROXANNA COMA SCORE: Roxanna Coma Scale. --11:53 Bianca Crockett R.N. 11:42 10/02/16. BP: 159/75. HR: 74. RR: 17. O2 saturation: 99%. Temp: 98.2 F. Pain level now: 0/10. --11:53 Bianca Crockett R.N. Weight: 51 kg measured. Height/Length: 64 inches Estimated. BMI: 19.3. --11:46 Bianca Crockett R.N. Medications Acetaminophen Oral 500 mg, 3x a day as needed. Atorvastatin Calcium Oral 10 mg, daily. Cranberry Oral (Capsule 200 mg) 4 capsules daily. Ferrous Sulfate Oral (Tablet 325 (65 Fe) mg) 1 tablet, 3x a day. Levothyroxine Sodium Oral 50 mcg, daily. Mag64 Oral 1 tab daily. MetFORMIN HCl Oral (Tablet 1000 mg) 1 tablet, daily. Mirtazapine Oral 15 mg, at bedtime. Oyster Shell Calcium Oral (Tablet 500 mg) 1 tablet. Pantoprazole Sodium Oral 20 mg. Prazosin HCl Oral 1 mg. Vitamin D Oral (Capsule 2000 unit) 1 capsule. --11:50 Bianca Crockett R.N. Polyethylene Glycol 3350 Oral, daily. --11:50 Bianca Crockett R.N. Macrobid Oral, , med was called in, started 09/30/16. --14:19 Kerrie Harley R.N. Allergies Penicillins. --11:50 Bianca Crockett R.N. History Arrived by EMS. Onset. 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 Treatment LABOR REPRESENTATIVE: None. See EMS report. EMS treatment LABOR REPRESENTATIVE verbally communicated. Finger stick glucose performed (150). ABUSE ASSESSMENT: No report of abuse. LEARNING NEEDS ASSESSMENT: (hx dementia). --11:53 Bianca Crockett R.N. PROBLEMS: Subdural hemorrhage. Weakness. Pedal Edema. Abdominal Pain. Prolapse of vaginal wall. Cervical disc degeneration. Cystocele. 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 Hemorrhoids. Hypercholesterolemia. Restless Legs Syndrome. Osteoporosis. Memory Loss. Degenerative Joint Disease. Diverticulosis. Anemia. Essential Hypertension. Anxiety Reaction. Insomnia. --11:51 Bianca Crockett R.N. ADDITIONAL SURGERIES: Unknown. --11:52 Bianca Crockett R.N. Interventions ID and allergy band on patient. --11:53 Bianca Crockett R.N. PHYSICAL ASSESSMENT GENERAL / NEURO / PSYCH: Appears in no acute distress. The patient is disoriented to place, time and situation (hx of dementia). Altered mental status: confused and disoriented to time, place and situation. Responds to simple questions and commands. Speech normal. Mood/affect normal. No motor deficit. No sensory deficit. Pupillary exam: Right pupil 2mm, round and reactive. Left pupil: 2mm, round and reactive. HEENT: No facial asymmetry noted. No signs of head trauma. RESPIRATORY: Breath sounds within normal limits. Respirations not labored. CVS: Normal sinus rhythm noted. Capillary refill less than 2 seconds. SKIN: Skin is warm. --12:02 Bianca Crockett R.N. NURSING PROGRESS NOTES 11:49 10/02/2016 Site #1 started via IV in the right wrist with an 20g angiocath; one attempt. Saline lock flushed with 10 mL saline. --11:54 Bianca Crockett R.N. flarer, pulse oximeter and NIBP monitor placed on patient; cardiac care nurse- Lead II, aVF and V5; monitor alarms on. Checked patient name and birthdate. Blood samples drawn by tech per protocol ; labeled in presence of the patient and sent to lab: [facility]roll varghese. (by Enikos). Patient identifiers checked. Call light placed in reach. Side rails up. Bed placed in lowest position. Brakes of bed on. --11:54 Bianca Crockett R.N. Patient identifiers checked. Call light placed in reach. Side rails up. Bed placed in lowest position. Brakes of bed on. NIH STROKE SCALE: NIH Stroke Scale: score 2. pt with hx of dementia, would not normally be able to answer time/place/sitution. pt at baseline mentation per ems. Level of Consciousness: alert (0). LOC Questions: neither (2). LOC Commands: both (0). Best gaze: normal (0). Visual field loss: none (0). Facial palsy: normal (0). Motor arm: no drift right arm (0) and no drift left arm (0). Motor leg: no drift right leg (0) and no drift left leg (0). Limb ataxia: none (0). Sensory loss: none (0). Aphasia: none (0). Dysarthria: normal (0). Extinction and inattention: none (0). --12:04 Bianca Crockett R.N. EKG time: (1146). EKG was ordered, performed by a tech and shown to the ED physician. --12:07 Zachary Donnelly, LINDA Tech1 13:08 10/02/16. The patient is resting quietly. Overall patient status is improved- she states feels better. GENERAL / NEURO / PSYCH: Alert. RESPIRATORY: No respiratory distress. SKIN: Skin is warm and dry. --13:08 Kerrie Harley R.N. 13:02 10/02/16. BP: 133/67. HR: 71. RR: 19. O2 saturation: 99%. --13:08 Kerrie Harley R.N. 13:24 10/02/16. The patient is resting quietly. Overall patient status is improved- she states feels better (assisted to BSC and back to bed). GENERAL / NEURO / PSYCH: Alert. RESPIRATORY: No respiratory distress. SKIN: Skin is warm and dry. --13:25 Kerrie Harley R.N. 13:23 10/02/16. BP: 143/67. HR: 68. RR: 16. O2 saturation: 97% on room air. --13:25 Kerrie Harley R.N. :patient confirmed. Clean catch urine collected; sample sent to lab. Specimen labeled in the presence of the patient. --13:25 Kerrie Harley R.N. ( Ambulation test done. The patient was able to get out of bed and walk around the room with a walker without further assistance. The patient was slow but steady.). --13:40 Zachary Donnelly, ER Tech1 14:26 10/02/2016 Aspirin PO Tablets 325 mg given. Allergies verified and confirmed 5 rights. --14:26 Kerrie Harley R.N. 14:35. The patient is calm and resting quietly. Overall patient status is improved- she states feels better (pt is back to her baseline, daughter is at bedside and will take her back to [employer] [address], assisted her to dress and into a WC, then out to a POV). GENERAL / NEURO / PSYCH: Alert. RESPIRATORY: No respiratory distress. SKIN: Skin is warm and dry. --15:21 Kerrie Harley R.N. 12:30 10/02/16. BP: 139/79. HR: 77. RR: 16. O2 saturation: 98%. --15:48 Kerrie Harley R.N. DISPOSITION / DISCHARGE Departure time: 1435. Condition at departure: stable. Fall risk assessment completed. Risk factors identified include patient medications, history of fall and impairment of mobility and cognition. Fall interventions initiated. Patient placed in wheelchair. Family at bedside. No learning barriers present. Discharge instructions provided and reviewed with the patient. Reviewed medication(s) side effects information. Patient verbalized understanding. Written instructions provided in Turkmen. The patient was discharged home and accompanied by family. She left the Emergency Department in a wheelchair and via private vehicle. --15:15 Kerrie Harley R.N. 14:26 10/02/16. BP: 154/75. HR: 67. RR: 16. O2 saturation: 100%. Pain level now: 0/10. --15:15 Kerrie Harley R.N. 15:17 10/02/2016 Site #1 removed upon discharge. Catheter intact. Bandaid applied. --15:17 Kerrie Harley R.N. Locked/Released at 10/02/2016 15:49 by Kerrie Harley R.N.
--- NOTE | 2016-10-02 14:21 | ED NURSING NOTES ---
Clinical Report - Nurses [facility] [address] [place] [address] 10/02/2016 11:30 Patient: EVON MAJOR TRIAGE Triage time 1131. Acuity: LEVEL 2. Chief Complaint: (pt from dementia unit,staff reported "change in pt" left sided weakness, pt arrives a/o to self only, pt straight to CT with RN). Alert. No acute distress. SEPSIS SCREEN: Sepsis Screen. Negative (no infection suspected/documented). ROXANNA COMA SCORE: Roxanna Coma Scale. --11:53 Bianca Crockett R.N. 11:42 10/02/16. BP: 159/75. HR: 74. RR: 17. O2 saturation: 99%. Temp: 98.2 F. Pain level now: 0/10. --11:53 Bianca Crockett R.N. Weight: 51 kg measured. Height/Length: 64 inches Estimated. BMI: 19.3. --11:46 Bianca Crockett R.N. Medications Acetaminophen Oral 500 mg, 3x a day as needed. Atorvastatin Calcium Oral 10 mg, daily. Cranberry Oral (Capsule 200 mg) 4 capsules daily. Ferrous Sulfate Oral (Tablet 325 (65 Fe) mg) 1 tablet, 3x a day. Levothyroxine Sodium Oral 50 mcg, daily. Mag64 Oral 1 tab daily. MetFORMIN HCl Oral (Tablet 1000 mg) 1 tablet, daily. Mirtazapine Oral 15 mg, at bedtime. Oyster Shell Calcium Oral (Tablet 500 mg) 1 tablet. Pantoprazole Sodium Oral 20 mg. Prazosin HCl Oral 1 mg. Vitamin D Oral (Capsule 2000 unit) 1 capsule. --11:50 Bianca Crockett R.N. Polyethylene Glycol 3350 Oral, daily. --11:50 Bianca Crockett R.N. Macrobid Oral, , med was called in, started 09/30/16. --14:19 Kerrie Harley R.N. Allergies Penicillins. --11:50 Bianca Crockett R.N. History Arrived by EMS. Onset. (20 minutes group captain). Treatment EXHAUST EMISSIONS AUTOMOTIVE TECHNICIAN: None. See EMS report. EMS treatment EXHAUST EMISSIONS AUTOMOTIVE TECHNICIAN verbally communicated. Finger stick glucose performed (150). ABUSE ASSESSMENT: No report of abuse. LEARNING NEEDS ASSESSMENT: (hx dementia). --11:53 Bianca Crockett R.N. PROBLEMS: Subdural hemorrhage. Weakness. Pedal Edema. Abdominal Pain. Prolapse of vaginal wall. Cervical disc degeneration. Cystocele. 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 Hemorrhoids. Hypercholesterolemia. Restless Legs Syndrome. Osteoporosis. Memory Loss. Degenerative Joint Disease. Diverticulosis. Anemia. Essential Hypertension. Anxiety Reaction. Insomnia. --11:51 Bianca Crockett R.N. ADDITIONAL SURGERIES: Unknown. --11:52 Bianca Crockett R.N. Interventions ID and allergy band on patient. --11:53 Bianca Crockett R.N. PHYSICAL ASSESSMENT GENERAL / NEURO / PSYCH: Appears in no acute distress. The patient is disoriented to place, time and situation (hx of dementia). Altered mental status: confused and disoriented to time, place and situation. Responds to simple questions and commands. Speech normal. Mood/affect normal. No motor deficit. No sensory deficit. Pupillary exam: Right pupil 2mm, round and reactive. Left pupil: 2mm, round and reactive. HEENT: No facial asymmetry noted. No signs of head trauma. RESPIRATORY: Breath sounds within normal limits. Respirations not labored. CVS: Normal sinus rhythm noted. Capillary refill less than 2 seconds. SKIN: Skin is warm. --12:02 Bianca Crockett R.N. NURSING PROGRESS NOTES 11:49 10/02/2016 Site #1 started via IV in the right wrist with an 20g angiocath; one attempt. Saline lock flushed with 10 mL saline. --11:54 Bianca Crockett R.N. vehicle monitor technician, pulse oximeter and NIBP monitor placed on patient; laboratory monitor- Lead II, aVF and V5; monitor alarms on. Checked patient name and birthdate. Blood samples drawn by tech per protocol ; labeled in presence of the patient and sent to lab: [facility]. (by [employer]). Patient identifiers checked. Call light placed in reach. Side rails up. Bed placed in lowest position. Brakes of bed on. --11:54 Bianca Crockett R.N. Patient identifiers checked. Call light placed in reach. Side rails up. Bed placed in lowest position. Brakes of bed on. NIH STROKE SCALE: NIH Stroke Scale: score 2. pt with hx of dementia, would not normally be able to answer time/place/sitution. pt at baseline mentation per ems. Level of Consciousness: alert (0). LOC Questions: neither (2). LOC Commands: both (0). Best gaze: normal (0). Visual field loss: none (0). Facial palsy: normal (0). Motor arm: no drift right arm (0) and no drift left arm (0). Motor leg: no drift right leg (0) and no drift left leg (0). Limb ataxia: none (0). Sensory loss: none (0). Aphasia: none (0). Dysarthria: normal (0). Extinction and inattention: none (0). --12:04 Bianca Crockett R.N. EKG time: (1146). EKG was ordered, performed by a tech and shown to the ED physician. --12:07 Zachary Donnelly, LINDA Tech1 13:08 10/02/16. The patient is resting quietly. Overall patient status is improved- she states feels better. GENERAL / NEURO / PSYCH: Alert. RESPIRATORY: No respiratory distress. SKIN: Skin is warm and dry. --13:08 Kerrie Harley R.N. 13:02 10/02/16. BP: 133/67. HR: 71. RR: 19. O2 saturation: 99%. --13:08 Kerrie Harley R.N. 13:24 10/02/16. The patient is resting quietly. Overall patient status is improved- she states feels better (assisted to BSC and back to bed). GENERAL / NEURO / PSYCH: Alert. RESPIRATORY: No respiratory distress. SKIN: Skin is warm and dry. --13:25 Kerrie Harley R.N. 13:23 10/02/16. BP: 143/67. HR: 68. RR: 16. O2 saturation: 97% on room air. --13:25 Kerrie Harley R.N. :patient confirmed. Clean catch urine collected; sample sent to lab. Specimen labeled in the presence of the patient. --13:25 Kerrie Harley R.N. ( Ambulation test done. The patient was able to get out of bed and walk around the room with a walker without further assistance. The patient was slow but steady.). --13:40 Zachary Donnelly, ER Tech1 14:26 10/02/2016 Aspirin PO Tablets 325 mg given. Allergies verified and confirmed 5 rights. --14:26 Kerrie Harley R.N. 14:35. The patient is calm and resting quietly. Overall patient status is improved- she states feels better (pt is back to her baseline, daughter is at bedside and will take her back to [facility], assisted her to dress and into a WC, then out to a POV). GENERAL / NEURO / PSYCH: Alert. RESPIRATORY: No respiratory distress. SKIN: Skin is warm and dry. --15:21 Kerrie Harley R.N. 12:30 10/02/16. BP: 139/79. HR: 77. RR: 16. O2 saturation: 98%. --15:48 Kerrie Harley R.N. DISPOSITION / DISCHARGE Departure time: 1435. Condition at departure: stable. Fall risk assessment completed. Risk factors identified include patient medications, history of fall and impairment of mobility and cognition. Fall interventions initiated. Patient placed in wheelchair. Family at bedside. No learning barriers present. Discharge instructions provided and reviewed with the patient. Reviewed medication(s) side effects information. Patient verbalized understanding. Written instructions provided in Maldivian. The patient was discharged home and accompanied by family. She left the Emergency Department in a wheelchair and via private vehicle. --15:15 Kerrie Harley R.N. 14:26 10/02/16. BP: 154/75. HR: 67. RR: 16. O2 saturation: 100%. Pain level now: 0/10. --15:15 Kerrie Harley R.N. 15:17 10/02/2016 Site #1 removed upon discharge. Catheter intact. Bandaid applied. --15:17 Kerrie Harley R.N. Locked/Released at 10/02/2016 15:49 by Kerrie Harley R.N.
--- NOTE | 2016-10-02 14:21 | ED CLINICAL REPORT ---
Clinical Report - Physicians/[facility] [address] [place] [address] 10/02/2016 11:30 Patient: EVON MAJOR Time Seen: 11:31. Arrived- By ambulance. Historian- patient, EMS personnel and daughter. History limited by dementia. Physical Exam limited by dementia. HISTORY OF PRESENT ILLNESS Chief Complaint: WEAKNESS and FACIAL DROOP. The patient has had new onset of weakness of the left face (moderate), left arm (moderate) and left leg (moderate). This started about 20 minutes SYSTEMS TESTER and is still present. It was abrupt in onset. The patient is usually alert but confused and usually walks using a walker and stands for transfers. The patient is right handed. Similar symptoms previously: Diagnosis: TIA. Recent medical care: The patient was seen recently at this facility. Seen for similar symptoms. Diagnosis: TIA. REVIEW OF SYSTEMS No chills, fever, sweats, calf pain or chest pain. No cough, difficulty breathing, pedal edema, palpitations or abdominal pain. No constipation, diarrhea, nausea, vomiting or urinary problems. All systems otherwise negative, except as recorded above. PAST HISTORY Problems: Dementia. Subdural hemorrhage. Weakness. Pedal Edema. Abdominal Pain. Prolapse of vaginal wall. Cervical disc degeneration. Cystocele. 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 Hemorrhoids. Hypercholesterolemia. Restless Legs Syndrome. Osteoporosis. Memory Loss. Degenerative Joint Disease. Diverticulosis. Anemia. Essential Hypertension. Anxiety Reaction. Insomnia. Medications: Macrobid Oral, , med was called in, started 09/30/16. Polyethylene Glycol 3350 Oral, daily. Acetaminophen Oral 500 mg, 3x a day as needed. Atorvastatin Calcium Oral 10 mg, daily. Cranberry Oral (Capsule 200 mg) 4 capsules daily. Ferrous Sulfate Oral (Tablet 325 (65 Fe) mg) 1 tablet, 3x a day. Levothyroxine Sodium Oral 50 mcg, daily. Mag64 Oral 1 tab daily. MetFORMIN HCl Oral (Tablet 1000 mg) 1 tablet, daily. Mirtazapine Oral 15 mg, at bedtime. Oyster Shell Calcium Oral (Tablet 500 mg) 1 tablet. Pantoprazole Sodium Oral 20 mg. Prazosin HCl Oral 1 mg. Vitamin D Oral (Capsule 2000 unit) 1 capsule. Allergies: Penicillins. SOCIAL HISTORY Resides in a intermediate. FAMILY HISTORY Denies family medical history. ADDITIONAL NOTES The nursing notes have been reviewed. PHYSICAL EXAM Vital Signs: 10/02/2016 11:42 BP: 159/75. HR: 74. RR: 17. O2 saturation: 99%. Temp: 98.2 F. Pain level now: 0/10. Have been reviewed. Appearance: Alert. She is disoriented and confused. Head: Head atraumatic. Eyes: Pupils equal, round and reactive to light. ENT: Airway intact. Pharynx normal. Neck: Neck supple. No carotid bruit. CVS: Normal heart rate and rhythm. Heart sounds normal. Respiratory: No respiratory distress. Breath sounds normal. Abdomen: Soft and nontender. No organomegaly. Back: Normal inspection. Skin: Skin warm and dry. No rash. Extremities: Extremities exhibit normal ROM. No calf tenderness. No lower extremity edema. Neuro: Alert. Dysarthria. Moderate left-sided facial weakness. She has had weakness of the left arm (severe) and left leg (severe). LABS, X-RAYS, AND EKG EKG: Rate: 74. Left axis deviation. Prior EKG unavailable. The study has been independently viewed by me. Chest X-ray: (IMPRESSION: 1. No acute changes 2. Mild cardiomegaly.). CT Head: (IMPRESSION: 1. No acute intracranial abnormality 2. Moderate atrophy and mild white matter chronic ischemic changes). The study was interpreted contemporaneously by me and discussed with the radiologist. Laboratory Tests: UA-Culture if indicated: (JOYCE: 10/02/2016 13:25) ( MsgRcvd 10/02/2016 13:58) Final results Test Result Flag Units (Reference) URINE COLOR YELLOW URINE APPEARANCE CLEAR URINE GLUCOSE NEGATIVE (NEGATIVE) URINE BILIRUBIN NEGATIVE (NEGATIVE) URINE KETONE NEGATIVE (NEGATIVE) URINE SPECIFIC GRAVITY 1.010 (1.010-1.030) URINE PH 7.5 (5.0-8.0) URINE PROTEIN NEGATIVE (NEGATIVE) URINE UROBILINOGEN 0.2 EU/dL (0.2-1.0) URINE NITRITE NEGATIVE (NEGATIVE) URINE BLOOD NEGATIVE (NEGATIVE) URINE LEUK ESTERASE POSITIVE (NEGATIVE) URINE RBC NONE SEEN rbc/hpf (0-1) URINE WBC 3-5 wbc/hpf (0-1) URINE EPITHELIAL CELLS 1-3 EPI/hpf (0-5) URINE BACTERIA FEW (1+) (NONE SEEN) URINE COMMENT CULTURE INDICATED URINE CULTURES ARE SET-UP BASED ON THE FOLLOWING CRITERIA:POSITIVE NITRITEPOSITIVE LEUKOCYTE ESTERASEGREATER THAN 10 WHITE BLOOD CELLSMODERATE (2+) OR GREATER BACTERIA CBC w Diff: (JOYCE: 10/02/2016 11:52) ( [facility] 10/02/2016 12:21) Final results Test Result Flag Units (Reference) WHITE BLOOD COUNT 12.1 H K/uL (4.5-11.5) RED BLOOD COUNT 3.49 L M/uL (4.00-5.20) HEMOGLOBIN 10.1 L gm/dL (12.0-16.0) HEMATOCRIT 30.6 L % (36.0-46.0) MEAN CELL VOLUME 88 fL (80-100) MEAN CORPUSCULAR HGB 29 pg (26-34) MEAN CORPUSCULAR HGB CONC 33 g/dL (31-37) RED CELL DISTRIBUTION WIDTH 15.0 H % (11.6-14.8) PLATELET COUNT 307 K/uL (150-400) NEUTROPHIL % 88.3 H % (50-75) LYMPH % 7.5 L % (25-40) MONO % 3.4 % (3-14) EOSINOPHIL % 0.3 % (0-4) BASOPHIL % 0.5 % (0-2) PT with INR: (JOYCE: 10/02/2016 11:52) ( [facility] 10/02/2016 12:24) Final results Test Result Flag Units (Reference) INR 1.0 (0.8-1.2) Low Intensity Therapy: INR 1.5-2.0 PT range 18.5-23.1Mod.Intensity Therapy: INR 2.0-3.0 PT range 23.1-31.5High Intensity Therapy: INR 2.5-3.5 PT range 27.4-35.5High Intensity Therapy 2: INR 3.0-4.0 PT range 31.5-39.3 APTT 32 SECONDS (24-34) CMP: (JOYCE: 10/02/2016 11:52) ( MsgRcvd 10/02/2016 12:57) Final results Test Result Flag Units (Reference) GLUCOSE 93 mg/dL (70-110) BUN 20 H mg/dL (7-18) CREATININE 0.9 mg/dL (0.6-1.3) Estimated GFR >60 mL/min Estimated GFR- >60 mL/min Note: Persistent reduction over 3 months in eGFR<60 mL/min/1.73 m2 defines CKD. Patients with eGFR values>=60 mL/min/1.73 m2 may also have CKD if evidence ofpersistent proteinuria. Additional information may be foundat www.[email or web address].org. SODIUM 134 L mmol/L (136-145) POTASSIUM 4.1 mmol/L (3.5-5.1) CHLORIDE 98 mmol/L (98-107) CARBON DIOXIDE 28 mmol/L (21-32) CALCIUM 9.0 mg/dL (8.5-10.1) TOTAL PROTEIN 7.1 g/dL (6.4-8.2) ALBUMIN 3.7 g/dL (3.3-5.0) BILIRUBIN, TOTAL 0.5 mg/dL (0.0-1.0) ALKALINE PHOSPHATASE 67 U/L (46-116) AST (SGOT) 16 U/L (15-37) ALT (SGPT) 18 U/L (12-78) LIPASE 122 U/L (73-393) AMYLASE 88 U/L (25-115) CPK 62 U/L (24-260) TROPONIN I <0.05 L ng/mL (0.00-1.5) TROPONIN REFERENCE RANGE:<0.1 NEGATIVE0.1-1.5 INDETERMINANT>1.5 POSITIVE . PROGRESS AND PROCEDURES Course of Care: had an extended discussion with the patient's daughter. She says that she would like for her mother to be placed in hospice setting. Discharge planning was contacted and discussed options for this with the patient and her mother. The patien mikel a pulsed form with her that shows she wishes not to be resuscitated or intubated but would like additional interventions with comfort as a goal. The patient's symptoms are now gone. Vital signs have been reviewed. Physical exam findings are improved. Alert. No respiratory distress. Normal heart rate and rhythm. Abdomen soft and nontender. Skin warm and dry. The patient has had weakness, (resolved). Patient/family counseled. Old medical records ordered. Disposition: Discharged to intermediate. Condition: stable. 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 INSTRUCTIONS (Contact the hospice program as instructed by the discharge planning staff here as discussed). Warnings: Further evaluation is necessary. GENERAL WARNINGS: Return or contact your physician immediately if your condition worsens or changes unexpectedly, if not improving as expected, or if other problems arise. Your Current Medications: CONTINUE TAKING THE FOLLOWING MEDICATIONS: Acetaminophen Oral : 500 mg 3x a day, prn. Atorvastatin Calcium Oral : 10 mg daily. Cranberry Oral : Capsule 200 mg, 4 capsules daily. Ferrous Sulfate Oral : Tablet 325 (65 Fe) mg, 1 tablet 3x a day. Levothyroxine Sodium Oral : 50 mcg daily. Macrobid Oral : Started: 09/30/16, med was called in. Mag64 Oral : 1 tab daily. MetFORMIN HCl Oral : Tablet 1000 mg, 1 tablet daily. Mirtazapine Oral : 15 mg at bedtime. Oyster Shell Calcium Oral : Tablet 500 mg, 1 tablet. Pantoprazole Sodium Oral : 20 mg. Polyethylene Glycol 3350 Oral : daily. Prazosin HCl Oral : 1 mg. Vitamin D Oral : Capsule 2000 unit, 1 capsule. OTC Medications: Aspirin 325 mg (available over the counter): take 1 orally every 24 hours. (this should be continued until otherwise directed by your primary care provider.) Follow-up: Follow up with your doctor as scheduled. Understanding of the discharge instructions verbalized by patient and family. (Electronically signed by Wilmar Hagan MD 10/02/2016 19:30)
--- NOTE | 2016-10-02 19:31 | ED DISCHARGE INSTRUCTIONS ---
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 INSTRUCTIONS (Contact the hospice program as instructed by the discharge planning staff here as discussed). Warnings: Further evaluation is necessary. GENERAL WARNINGS: Return or contact your physician immediately if your condition worsens or changes unexpectedly, if not improving as expected, or if other problems arise. Your Current Medications: CONTINUE TAKING THE FOLLOWING MEDICATIONS: Acetaminophen Oral : 500 mg 3x a day, prn. Atorvastatin Calcium Oral : 10 mg daily. Cranberry Oral : Capsule 200 mg, 4 capsules daily. Ferrous Sulfate Oral : Tablet 325 (65 Fe) mg, 1 tablet 3x a day. Levothyroxine Sodium Oral : 50 mcg daily. Macrobid Oral : Started: 09/30/16, med was called in. Mag64 Oral : 1 tab daily. MetFORMIN HCl Oral : Tablet 1000 mg, 1 tablet daily. Mirtazapine Oral : 15 mg at bedtime. Oyster Shell Calcium Oral : Tablet 500 mg, 1 tablet. Pantoprazole Sodium Oral : 20 mg. Polyethylene Glycol 3350 Oral : daily. Prazosin HCl Oral : 1 mg. Vitamin D Oral : Capsule 2000 unit, 1 capsule. OTC Medications: Aspirin 325 mg (available over the counter): take 1 orally every 24 hours. (this should be continued until otherwise directed by your primary care provider.) Follow-up: Follow up with your doctor as scheduled. Understanding of the discharge instructions verbalized by patient and family. ADDITIONAL INFORMATION TIA: Transient Ischemic Attack The spell you had today is called a TIA (mini-stroke). It is caused by a temporary decrease or blockage of blood flow to a part of your brain. A TIA often happens when a blood clot travels to a blood vessel in the brain. The clot reduces or blocks blood flow, resulting in the symptoms you had. After a short while, the clot dissolves, blood flows again, and the symptoms disappear. Persons with atherosclerosis (hardening of the arteries) or atrial fibrillation (a type of irregular heartbeat) are at higher risk of TIA. TIA causes temporary symptoms similar to a stroke, but lasts less than 24 hours. A full stroke causes symptoms that last more than 24 hours and may be permanent. Once you have had a TIA, you are at risk of having a full stroke. Therefore, be sure to follow up with your doctor for further evaluation. This may include an ultrasound of the arteries in your neck and an evaluation of your heart. If problems are found, your doctor will recommend treatment with medications and/or procedures. Medications to reduce your chance of having another TIA (and stroke) include those that prevent blood clots, such as antiplatelet medicines and anticoagulant medicines. Home care The following guidelines will help you take care of yourself at home: If all of your symptoms have resolved, there is nothing special that you need to do today. Rest at home and avoid exertion for the rest of the day. If your doctor has prescribed antiplatelet medication, take it as directed. Other ways to reduce your risk of a stroke Hypertension, diabetes, elevated cholesterol, and smoking are risk factors for stroke and heart disease. These can be controlled through medications, diet and lifestyle changes. Taking daily aspirin (or similar medications) is a simple but important part of preventing stroke. Follow-up care Call your doctor for an appointment in the next few days for another evaluation. Additional tests may be needed. If you had an X-ray, CT scan, MRI scan, or ECG (electrocardiogram), it will be reviewed by a specialist. Youll be notified of any new findings that will affect your care. When to call 911 or emergency services Get immediate medical attention if any of the following occur: Any of your TIA symptoms return New problems with speech, vision, walking, or weakness or numbeness of the face or on one side of the body Severe headache, fainting spell, dizziness, or seizure Aspirin Oral tablet What is this medicine? ASPIRIN ( pir in) is a pain reliever. It is used to treat mild pain and fever. This medicine is also used as directed by a doctor to prevent and to treat heart attacks, to prevent strokes, and to treat arthritis or inflammation. How should I use this medicine? Take this medicine by mouth with a glass of water. Follow the directions on the package or prescription label. You can take this medicine with or without food. If it upsets your stomach, take it with food. Do not take your medicine more often than directed. Talk to your appliance adjuster regarding the use of this medicine in children. While this drug may be prescribed for children as young as 12 years of age for selected conditions, precautions do apply. Children and teenagers should not use this medicine to treat chicken pox or flu symptoms unless directed by a doctor. Patients over 65 years old may have a stronger reaction and need a smaller dose. What side effects may I notice from receiving this medicine? Side effects that you should report to your doctor or health intensive care ambulance paramedic as soon as possible: allergic reactions like skin rash, itching or hives, swelling of the face, lips, or tongue breathing problems changes in hearing, ringing in the ears confusion general ill feeling or flu-like symptoms pain on swallowing redness, blistering, peeling or loosening of the skin, including inside the mouth or nose signs and symptoms of bleeding such as bloody or black, tarry stools; red or dark-brown urine; spitting up blood or brown material that looks like coffee grounds; red spots on the skin; unusual bruising or bleeding from the eye, gums, or nose trouble passing urine or change in the amount of urine unusually weak or tired yellowing of the eyes or skin Side effects that usually do not require medical attention (report to your doctor or health intensive care ambulance paramedic if they continue or are bothersome): diarrhea or constipation nausea, vomiting stomach gas, heartburn What may interact with this medicine? Do not take this medicine with any of the following medications: cidofovir ketorolac probenecid This medicine may also interact with the following medications: alcohol alendronate bismuth subsalicylate flavocoxid herbal supplements like feverfew, garlic, north, ginkgo biloba, horse chestnut medicines for diabetes or glaucoma like acetazolamide, methazolamide medicines for gout medicines that treat or prevent blood clots like enoxaparin, heparin, ticlopidine, warfarin other aspirin and aspirin-like medicines NSAIDs, medicines for pain and inflammation, like ibuprofen or naproxen pemetrexed sulfinpyrazone varicella live vaccine What if I miss a dose? If you are taking this medicine on a regular schedule and miss a dose, take it as soon as you can. If it is almost time for your next dose, take only that dose. Do not take double or extra doses. Where should I keep my medicine? Keep out of the reach of children. Store at room temperature between 15 and 30 degrees C (59 and 86 degrees F). Protect from heat and moisture. Do not use this medicine if it has a strong vinegar smell. Throw away any unused medicine after the expiration date. What should I tell my health care provider before I take this medicine? They need to know if you have any of these conditions: anemia asthma bleeding problems child with chickenpox, the flu, or other viral infection diabetes gout if you frequently drink alcohol containing drinks kidney disease liver disease low level of vitamin K lupus smoke tobacco stomach ulcers or other problems an unusual or allergic reaction to aspirin, tartrazine dye, other medicines, dyes, or preservatives or trying to get breast-feeding What should I watch for while using this medicine? If you are treating yourself for pain, tell your doctor or health intensive care ambulance paramedic if the pain lasts more than 10 days, if it gets worse, or if there is a new or different kind of pain. Tell your doctor if you see redness or swelling. Also, check with your doctor if you have a fever that lasts for more than 3 days. Only take this medicine to prevent heart attacks or blood clotting if prescribed by your doctor or health intensive care ambulance paramedic. Do not take aspirin or aspirin-like medicines with this medicine. Too much aspirin can be dangerous. Always read the labels carefully. This medicine can irritate your stomach or cause bleeding problems. Do not smoke cigarettes or drink alcohol while taking this medicine. Do not lie down for 30 minutes after taking this medicine to prevent irritation to your throat. If you are scheduled for any medical or dental procedure, tell your healthcare provider that you are taking this medicine. You may need to stop taking this medicine before the procedure. You have been given the following additional information: TIA: Transient Ischemic Attack Aspirin Oral tablet (Electronically signed by Wilmar Hagan MD 10/02/2016 19:30)
--- NOTE | 2016-10-02 19:31 | ED MAR SUMMARY ---
..... Medication Administration Record [facility] [address] [place] [address] Patient: EVON MAJOR Visit ID: [id number] 86y, F Weight: 51.0 kg Height/Length: 64 in BMI: 19.3 ALLERGIES: Penicillins Given 14:26 10/02/2016 Kerrie Harley R.N. Medication Administered: ASPIRIN [PO], Dose: 325 mg Tablets PO. Medication Ordered: Aspirin PO 325 mg (Do not crush or chew, NOW).
--- NOTE | 2016-10-02 19:31 | ED MAR SUMMARY ---
..... Medication Administration Record [facility] [address] [place] [address] Patient: EVON MAJOR Visit ID: [id number] 86y, F Weight: 51.0 kg Height/Length: 64 in BMI: 19.3 ALLERGIES: Penicillins Given 14:26 10/02/2016 Kerrie Harley R.N. Medication Administered: ASPIRIN [PO], Dose: 325 mg Tablets PO. Medication Ordered: Aspirin PO 325 mg (Do not crush or chew, NOW).
--- NOTE | 2016-10-02 19:31 | ED MED RECONCILIATION SUMMARY ---
Patient: EVON MAJOR Medication Reconciliation Report [facility] VisitID: [id number] [place] [address] 86y, F Registration Date/Time: 10/02/2016 Weight: 51 kg Height/Length: 64 in. BMI: 19.3 ALLERGIES: Penicillins The patient's Home Medications are listed below: CONTINUE TAKING THE FOLLOWING MEDICATIONS: Acetaminophen Oral 500 mg, 3x a day Atorvastatin Calcium Oral 10 mg, daily Cranberry Oral (200 mg) 4 capsules daily Ferrous Sulfate Oral (325 (65 Fe) mg) 1 tablet, 3x a day Levothyroxine Sodium Oral 50 mcg, daily Macrobid Oral, med was called in Mag64 Oral 1 tab daily MetFORMIN HCl Oral (1000 mg) 1 tablet, daily Mirtazapine Oral 15 mg, at bedtime Oyster Shell Calcium Oral (500 mg) 1 tablet Pantoprazole Sodium Oral 20 mg Polyethylene Glycol 3350 Oral, daily Prazosin HCl Oral 1 mg Vitamin D Oral (2000 unit) 1 capsule The source(s) of the original Home Medication information: Not obtained. The following Medications were given to the patient in the Emergency Department: Aspirin [PO] PO 325 mg, administered: 10/02/2016 2:26:00 PM The following Medications were prescribed to the patient: Aspirin 325 mg (available over the counter): take 1 orally every 24 hours.(this should be continued until otherwise directed by your primary care provider.) -- Wilmar Hagan MD
--- NOTE | 2016-10-02 19:31 | ED MED RECONCILIATION SUMMARY ---
Patient: EVON MAJOR Medication Reconciliation Report [facility] VisitID: [id number] [place] [address] 86y, F Registration Date/Time: 10/02/2016 Weight: 51 kg Height/Length: 64 in. BMI: 19.3 ALLERGIES: Penicillins The patient's Home Medications are listed below: CONTINUE TAKING THE FOLLOWING MEDICATIONS: Acetaminophen Oral 500 mg, 3x a day Atorvastatin Calcium Oral 10 mg, daily Cranberry Oral (200 mg) 4 capsules daily Ferrous Sulfate Oral (325 (65 Fe) mg) 1 tablet, 3x a day Levothyroxine Sodium Oral 50 mcg, daily Macrobid Oral, med was called in Mag64 Oral 1 tab daily MetFORMIN HCl Oral (1000 mg) 1 tablet, daily Mirtazapine Oral 15 mg, at bedtime Oyster Shell Calcium Oral (500 mg) 1 tablet Pantoprazole Sodium Oral 20 mg Polyethylene Glycol 3350 Oral, daily Prazosin HCl Oral 1 mg Vitamin D Oral (2000 unit) 1 capsule The source(s) of the original Home Medication information: Not obtained. The following Medications were given to the patient in the Emergency Department: Aspirin [PO] PO 325 mg, administered: 10/02/2016 2:26:00 PM The following Medications were prescribed to the patient: Aspirin 325 mg (available over the counter): take 1 orally every 24 hours.(this should be continued until otherwise directed by your primary care provider.) -- Wilmar Hagan MD
== END 2016-10-02 14:35 | disposition home or self-care (01) ==
LOC: ED SRH 11:30
DX: G45.9 Transient cerebral ischemic attack, unspecified (principal); G46.0 Middle cerebral artery syndrome; I10 Essential (primary) hypertension; Z79.899 Other long term (current) drug therapy; Z88.0 Allergy status to penicillin
CPT/HCPCS: 90004; 90025; 90070; 90100; 90148; 90469; 90616; 92235; 92530; 92610; 94001; 94060; 95059